=== PATIENT | female | born 1950 | race Caucasian/White ===

== ENCOUNTER 2017-12-06 10:11 | Emergency (ER) | payer OTHER, BC ==
[2017-12-06] MEDS ORDERED: Sodium Chloride 0.9% 2.5 ML Syringe FLUSH PRN (10:18)
[2017-12-06] MEDS ORDERED: Sodium Chloride 0.9% 10 ML Syringe FLUSH PRN (10:18)
[2017-12-06] MEDS ORDERED: Diphtheria,Pertussis(Acell),Tetanus Vaccine 0.5 ML Syringe IM ONE (10:19)
--- NOTE | 2017-12-06 10:26 | EDM.PDOC ---
ED HPI GENERAL MEDICAL PROBLEM - General Chief Complaint: Head Injury Stated Complaint: FELL ON ICE Time Seen by Provider: 12/06/17 10:17 Source of Information: Reports: Patient, EMS History Limitations: Reports: No Limitations - History of Present Illness INITIAL COMMENTS - FREE TEXT/NARRATIVE: HISTORY AND PHYSICAL: Trauma alert was called at [address] Acosta was involved in this case. History of present illness: Patient is a 67-year-old female who presents to the emergency room today with complaints of posterior scalp pain and confusion after a fall. She states she was getting out of her car and when her feet landed on the icy cement she slipped falling on her back, striking the back of her head. She denies any loss of consciousness. EMS was called for assistance. EMS states that upon arrival she was slightly confused to the year and president. EMS gave 0.5 mg Dilaudid and 4mg Zofran PROCESS OPERATOR. Her complaint is posterior scalp pain at the area of hitting the ground. She denies any neck, back, chest, pelvis or extremity pain. She is on a blood thinner, although does not know the name of it. Past medical history of hypertension, poor ejection fraction ("70%"), cervical fusion, and shoulder impingement. Review of systems: As per history of present illness and below otherwise all systems reviewed and negative. Past medical history: As per history of present illness and as reviewed below otherwise noncontributory. Surgical history: As per history of present illness and as reviewed below otherwise noncontributory. Social history: No reported history of drug or alcohol abuse. Family history: As per history of present illness and as reviewed below otherwise noncontributory. Physical exam: General: Well-developed and well-nourished 67-year-old female. Alert and oriented. Nontoxic appearing and in no acute distress. HEENT: Golf-ball sized area of soft tissue swelling to posterior parietal area, tender to palpation. Normocephalic, pupils equal and reactive bilaterally, negative for conjunctival pallor or scleral icterus, mucous membranes moist, throat clear, neck supple, nontender, trachea midline. No drooling or trismus noted. No meningeal signs Lungs: Clear to auscultation, breath sounds equal bilaterally, chest nontender. Heart: S1S2, regular rate and rhythm without overt murmur Abdomen: Soft, nondistended, nontender. Negative for masses or hepatosplenomegaly. Negative for costovertebral tenderness. Pelvis: Stable nontender. Genitourinary: Deferred. Rectal: Deferred. Skin: Intact, warm, dry. No lesions or rashes noted. C-spine/Back: No pinpoint vertebral tenderness upon palpation. No crepitus, step -offs or obvious deformities noted. Patient was not incontinent of urine or stool. Denies any numbness or tingling to her distal extremities. Extremities: Moves all extremities per self without difficulty or deficits. Upper and lower extremities were palpated without any pain or tenderness. Chest , abdomen, pelvis and back are within normal limits and no tenderness/pain with palpation. She is negative for cords or calf pain. Neurovascular unremarkable. Neuro: Awake, alert, oriented. Cranial nerves II through XII unremarkable. Cerebellum unremarkable. Motor and sensory unremarkable throughout. Exam nonfocal. Notes: GCS 15. C-spine was cleared on scene by EMS; she has no cervical tenderness. I will do a CT of her C-Spine due to previous surgery and mechanism of injury. 1110- Chest and Pelvis x-rays are normal. Cervical spine CT is within normal limits, fusion noted at C5-C6 with hardware intact. Head CT shows no fractures or acute bleeding. She does have a subcutaneous hematoma to the posterior parietal area, which was noted on my evaluation. 1115- These findings were shared with the patient. LAB is here doing lab work. Patient offers no current complaints and declines any further pain medication at this time. Discharge is pending. Labs are within normal limits. Will prescribe Tramadol #15, NRF, for pain. Diagnostics: CBC, CMP, PT INR, head CT, cervical spine CT, one view chest, one view pelvis, EKG Therapeutics: Tdap, Saline lock Impression: Head Injury Hematoma Plan: 1. These review the head injury instructions that have been discussed with you and that her printed out in your packet. 2. Rest and ice the painful areas. He may use Tylenol and/or ibuprofen as needed. Tramadol has been prescribed for moderate to severe pain. This medication may cause drowsiness so do not take it while driving or needing to be functioning outside of the house. 3. Follow-up with your primary caregiver in the next 2-3 days. Return to the ED as needed and as discussed. Definitive disposition and diagnosis as appropriate pending reevaluation and review of above. Onset: Today Duration: Minutes: Location: Reports: Head Head Pain Score (Numeric/FACES): 4 - Related Data Allergies Allergy/AdvReac Type Severity Reaction Status Date / Time No Known Allergies Allergy Verified 12/06/17 10:18 Home Meds: Home Meds Atenolol 50 mg PO DAILY 12/06/17 [History] Lisinopril/Hydrochlorothiazide [Lisinopril-Hctz 20-12.5 mg Tab] 1 each PO DAILY 12/06/17 [History] NIFEdipine [Nifedipine ER] 30 mg PO DAILY 12/06/17 [History] Nitroglycerin 0.4 mg SL ASDIRECTED 12/06/17 [History] Pantoprazole [ProTONIX] 40 mg PO DAILY 12/06/17 [History] Potassium Chloride 10 meq PO DAILY 12/06/17 [History] Pravastatin [Pravachol] 40 mg PO DAILY 12/06/17 [History] ED ROS GENERAL - Review of Systems Review Of Systems: ROS reveals no pertinent complaints other than HPI. ED EXAM, HEAD INJURY - Physical Exam Exam: See Below (See dictation) Course - Vital Signs Last Recorded V/S: Last Vital Signs Temp 97.4 F 12/06/17 10:18 Pulse 67 12/06/17 10:18 Resp 18 12/06/17 10:18 BP 160/89 H 12/06/17 10:18 Pulse Ox 97 12/06/17 10:18 - Orders/Labs/Meds Orders: Active Orders 24 hr Category Date Time Status Admission Status [Patient Status] [ADT] Stat ADT 12/06/17 10:45 Active EKG Documentation Completion [RC] STAT Care 12/06/17 10:18 Active Vaccines to be Administered [RC] PER UNIT ROUTINE Care 12/06/17 10:19 Active Sodium Chloride 0.9% [Saline Flush] Med 12/06/17 10:18 Active 10 ml FLUSH ASDIRECTED PRN Sodium Chloride 0.9% [Saline Flush] Med 12/06/17 10:18 Active 2.5 ml FLUSH ASDIRECTED PRN Saline Lock Insert [OM.PC] Stat Oth 12/06/17 10:18 Ordered Medication Orders Sodium Chloride (Saline Flush) 10 ml FLUSH ASDIRECTED PRN PRN Reason: Keep Vein Open Last Admin: 12/06/17 10:45 Dose: 10 ml Sodium Chloride (Saline Flush) 2.5 ml FLUSH ASDIRECTED PRN PRN Reason: Keep Vein Open Last Admin: 12/06/17 10:45 Dose: 2.5 ml Labs: Laboratory Tests 12/06/17 12/06/17 12/06/17 Range/Units 11:19 11:19 11:19 WBC 7.44 (4.0-11.0) K/uL RBC 4.38 (4.30-5.90) M/uL Hgb 13.3 (12.0-16.0) g/dL Hct 40.4 (36.0-46.0) % MCV 92.2 (80.0-98.0) fL MCH 30.4 (27.0-32.0) pg MCHC 32.9 (31.0-37.0) g/dL RDW Std Deviation 45.5 (28.0-62.0) fl RDW Coeff of Harika 14 (11.0-15.0) % Plt Count 258 (150-400) K/uL MPV 10.30 (7.40-12.00) fL Neut % (Auto) 66.1 (48.0-80.0) % Lymph % (Auto) 25.9 (16.0-40.0) % [place] % (Auto) 7.0 (0.0-15.0) % Eos % (Auto) 0.7 (0.0-7.0) % Baso % (Auto) 0.3 (0.0-1.5) % Neut # (Auto) 4.9 (1.4-5.7) K/uL Lymph # (Auto) 1.9 (0.6-2.4) K/uL [place] # (Auto) 0.5 (0.0-0.8) K/uL Eos # (Auto) 0.1 (0.0-0.7) K/uL Baso # (Auto) 0.0 (0.0-0.1) K/uL Nucleated RBC % 0.0 /100WBC Nucleated RBCs # 0 K/uL INR 1.02 Sodium 140 (136-145) mmol/L Potassium 4.2 (3.5-5.1) mmol/L Chloride 103 (98-107) mmol/L Carbon Dioxide 28.4 (21.0-32.0) mmol/L BUN 20 H (7.0-18.0) mg/dL Creatinine 1.1 H (0.6-1.0) mg/dL Est Cr Clr Drug Dosing TNP Estimated GFR (MDRD) 49.7 ml/min Glucose 106 (74-106) mg/dL Calcium 9.1 (8.5-10.1) mg/dL Total Bilirubin 0.3 (0.2-1.0) mg/dL AST 20 (15-37) IU/L ALT 25 (14-63) IU/L Alkaline Phosphatase 67 (46-116) U/L Total Protein 7.3 (6.4-8.2) g/dL Albumin 3.9 (3.4-5.0) g/dL Globulin 3.4 (2.0-3.5) g/dL Albumin/Globulin Ratio 1.1 L (1.3-2.8) Meds: Medications Generic Name Dose Route Start Last Admin Trade Name Freq PRN Reason Stop Dose Admin Sodium Chloride 10 ml 12/06/17 10:18 12/06/17 10:45 Saline Flush FLUSH 10 ml ASDIRECTED PRN Administration Keep Vein Open Sodium Chloride 2.5 ml 12/06/17 10:18 12/06/17 10:45 Saline Flush FLUSH 2.5 ml ASDIRECTED PRN Administration Keep Vein Open Discontinued Medications Generic Name Dose Route Start Last Admin Trade Name Freq PRN Reason Stop Dose Admin Diphtheria/Tetanus/Acell Pertussis 0.5 ml 12/06/17 10:19 12/06/17 10:45 Adacel IM 12/06/17 10:20 0.5 ml .ONCE ONE Administration Departure - Departure Time of Disposition: 11:50 Disposition: Home, Self-Care 01 Clinical Impression: Hematoma Head injury Qualifiers: Encounter type: initial encounter Qualified Code(s): S09.90XA - Unspecified injury of head, initial encounter - Discharge Information Referrals: PCP,Unknown [Primary Care Provider] - Forms: ED Department Discharge Additional Instructions: The following information is given to patients seen in the emergency department who are being discharged to home. This information is to outline your options for follow-up care. We provide all patients seen in our emergency department with a follow-up referral. The need for follow-up, as well as the timing and circumstances, are variable depending upon the specifics of your emergency department visit. If you don't have a primary care physician on staff, we will provide you with a referral. We always advise you to contact your personal physician following an emergency department visit to inform them of the circumstance of the visit and for follow-up with them and/or the need for any referrals to a consulting specialist. The emergency department will also refer you to a specialist when appropriate. This referral assures that you have the opportunity for follow-up care with a specialist. All of these measure are taken in an effort to provide you with optimal care, which includes your follow-up. Under all circumstances we always encourage you to contact your private physician who remains a resource for coordinating your care. When calling for follow-up care, please make the office aware that this follow-up is from your recent emergency room visit. If for any reason you are refused follow-up, please contact the [facility] at and asked to speak to the emergency department charge nurse. [facility] [address] [place] [address] 1. These review the head injury instructions that have been discussed with you and that her printed out in your packet. 2. Rest and ice the painful areas. He may use Tylenol and/or ibuprofen as needed. Tramadol has been prescribed for moderate to severe pain. This medication may cause drowsiness so do not take it while driving or needing to be functioning outside of the house. 3. Follow-up with your primary caregiver in the next 2-3 days. Return to the ED as needed and as discussed. - My Orders Last 24 Hours: My Active Orders 12/06/17 10:18 EKG Documentation Completion [RC] STAT Sodium Chloride 0.9% [Saline Flush] 10 ml FLUSH ASDIRECTED PRN Sodium Chloride 0.9% [Saline Flush] 2.5 ml FLUSH ASDIRECTED PRN Saline Lock Insert [OM.PC] Stat 12/06/17 10:19 Vaccines to be Administered [RC] PER UNIT ROUTINE 12/06/17 10:45 Admission Status [Patient Status] [ADT] Stat - Assessment/Plan Last 24 Hours: My Active Orders 12/06/17 10:18 EKG Documentation Completion [RC] STAT Sodium Chloride 0.9% [Saline Flush] 10 ml FLUSH ASDIRECTED PRN Sodium Chloride 0.9% [Saline Flush] 2.5 ml FLUSH ASDIRECTED PRN Saline Lock Insert [OM.PC] Stat 12/06/17 10:19 Vaccines to be Administered [RC] PER UNIT ROUTINE 12/06/17 10:45 Admission Status [Patient Status] [ADT] Stat
--- NOTE | 2017-12-06 10:52 | CR ---
EXAMINATION: Portable chest radiograph. HISTORY: Fall. FINDINGS: The trachea is midline. The cardiomediastinal silhouette is within normal limits. No pulmonary infilt rates, effusions or pneumothorax. Osseous structures appear unremarkable. IMPRESSION: No acute cardiopulmonary process.
--- NOTE | 2017-12-06 10:57 | CT ---
EXAMINATION: Non contrast CT head. Coronal and sagittal reformats. HISTORY: Fall FINDINGS: No evidence of intra or extra axial hemorrhage, mass, midline shift, hydrocephalus or edema. No hypoattenuation changes in the major vascular territories to suggest acute infarct. No abnormal intracranial calcifications are detected. No evidence of substantial vascular calcificat ions. Paranasal sinuses and mastoid air cells are well aerated without substantial findings. No evidence a nd globes are symmetric. There is complexes are mildly prominent. Pituitary fossa appears unremarkable. Subcutaneous hematoma within the posterior parietal region. Calvarium is intact. No evidence of skull fracture. IMPRESSION: 1. No acute intracranial findings. 2. Nerve sheath complexes are mildly prominent in size.
--- NOTE | 2017-12-06 11:00 | CT ---
EXAMINATION: CT cervical spine HISTORY: Fall COMPARISON: None TECHNIQUE: Axial CT images obtained through the cervical spine without contrast. Coronal and sagittal reconstructions obtained. FINDINGS: The cervical spinal alignment is normal. The vertebral body heights and disc spaces appear well-maintained. Anterior cervical fusion noted at C5-C6. No fracture or acute osseous abnormality de monstrated. Bone mineralization is normal. Mild marginal osteophytes. Lung apices are clear. IMPRESSION: 1. No acute cervical spine abnormality identified.
--- NOTE | 2017-12-06 11:01 | CR ---
EXAMINATION: Pelvis HISTORY: Fall COMPARISON: MRI dated 01/29/2013 TECHNIQUE: AP view FINDINGS: There is no acute osseous abnormality, dislocation, or fracture. Iliopectineal lines are in tact. SI joints are symmetric. Hip joint spaces are preserved. Bone mineralization is normal. IMPRESSION: No acute osseous abnormality identified.
[2017-12-06 12:08] LABS: CHLORIDE,CL 103 mmol/L (98-107); SODIUM,NA 140 mmol/L (136-145)
== END 2017-12-06 12:32 | disposition home or self-care (01) ==
LOC: MW.ED 10:11
DX: S00.03XA Contusion of scalp, initial encounter (principal); S09.90XA Unspecified injury of head, initial encounter; Z79.899 Other long term (current) drug therapy; W00.2XXA Other fall from one level to another due to ice and snow, initial encounter
CPT/HCPCS: 36415; 70450; 70450-26; 71045; 71045-26; 72125; 72125-26; 72170; 72170-26; 80053; 85025; 85610; 90471; 90715; 93005; 99284-25; 99285; G0390

== ENCOUNTER 2017-12-22 15:12 | Observation (INO) | payer MEDICARE, BC ==
[2017-12-22] MEDS ORDERED: Nitroglycerin 0.4 MG Tab.SL SL PRN (15:19)
[2017-12-22] MEDS ORDERED: Aspirin 81 MG Tab.Chew PO ONE (15:19)
--- NOTE | 2017-12-22 15:41 | EDM.PDOC ---
ED HPI GENERAL MEDICAL PROBLEM - General Chief Complaint: Chest Pain Stated Complaint: BACK PAIN Time Seen by Provider: 12/22/17 15:20 Source of Information: Reports: Patient History Limitations: Reports: No Limitations - History of Present Illness INITIAL COMMENTS - FREE TEXT/NARRATIVE: HISTORY AND PHYSICAL: History of present illness: Patient is a 67-year-old female who presents to the emergency room with complaints of a resolved episode of back pain between her shoulder blades. She states she had been doing some light housework and went to sit down to drink a cocktail when she started having intense back pain approximately 5 minutes for this to resolve on its own. During this time she felt flushed and nauseated. Call EMS to transfer her to the emergency room as she does have a history of cardiac disease. Currently asymptomatic and offers no current complaints. EMS gave the patient 325mg aspirin prior to arrival. Patient has a history of very artery disease, she states she is unsure of where her blockage dislocated but it did not require stenting as she was told "the vein is too small to stent". She was routinely seeing a stove tender in [place]. Last seen Dr. Jhaveri a year and half ago. Last week saw Dr. José Antonio López and was started on Crestor 5 mg once daily. Strong family history of heart disease (IA/Stent/Bypass). Personal history of hypertension, hyperlipidemia and coronary artery disease. Review of systems: As per history of present illness and below otherwise all systems reviewed and negative. Past medical history: As per history of present illness and as reviewed below otherwise noncontributory. Surgical history: As per history of present illness and as reviewed below otherwise noncontributory. Social history: No reported history of drug or alcohol abuse. Family history: As per history of present illness and as reviewed below otherwise noncontributory. Physical exam: General: Well-developed and well-nourished 67-year-old female. Alert and oriented. Nontoxic appearing and in no acute distress. HEENT: Atraumatic, normocephalic, pupils equal and reactive bilaterally, negative for conjunctival pallor or scleral icterus, mucous membranes moist, throat clear, neck supple, nontender, trachea midline. No drooling or trismus noted. No meningeal signs Lungs: Clear to auscultation, breath sounds equal bilaterally, chest nontender. Heart: S1S2, regular rate and rhythm without overt murmur Abdomen: Soft, nondistended, nontender. Negative for masses or hepatosplenomegaly. Negative for costovertebral tenderness. Pelvis: Stable nontender. Genitourinary: Deferred. Rectal: Deferred. Skin: Intact, warm, dry. No lesions or rashes noted. Extremities: Atraumatic, negative for cords or calf pain. Neurovascular unremarkable. Neuro: Awake, alert, oriented. Cranial nerves II through XII unremarkable. Cerebellum unremarkable. Motor and sensory unremarkable throughout. Exam nonfocal. Notes: Patient had 325 mg aspirin prior to arrival. Currently is pain-free. We'll continue to monitor. Lab work is unremarkable. EKG rhythm with a heart rate of 89. Patient continues to be pain-free. Due to her past medical history and comorbidities I would like her to stay for observation. She is agreeable. Dr. Do was consulted on this case. Diagnostics: CBC, CMP, troponin, EKG, chest x-ray Therapeutics: Saline lock Impression: Chest Pain r/o IA Plan: Observation admission to MEd/Surg with Telemetry - per Hi Definitive disposition and diagnosis as appropriate pending reevaluation and review of above. Onset: Today Duration: Hour(s): Location: Reports: Back - Related Data Allergies Allergy/AdvReac Type Severity Reaction Status Date / Time No Known Allergies Allergy Verified 12/06/17 10:18 Home Meds: Home Meds Atenolol 50 mg PO DAILY 12/06/17 [History] Lisinopril/Hydrochlorothiazide [Lisinopril-Hctz 20-12.5 mg Tab] 1 each PO DAILY 12/06/17 [History] NIFEdipine [Nifedipine ER] 30 mg PO DAILY 12/06/17 [History] Nitroglycerin 0.4 mg SL ASDIRECTED 12/06/17 [History] Pantoprazole [ProTONIX] 40 mg PO DAILY 12/06/17 [History] Potassium Chloride 10 meq PO DAILY 12/06/17 [History] Pravastatin [Pravachol] 40 mg PO DAILY 12/06/17 [History] Past Medical History Cardiovascular History: Reports: High Cholesterol, Hypertension, Other (See Below) Other Cardiovascular History: pt has heart blockage is knowns about Social & Family History - Tobacco Use Smoking Status *Q: Never Smoker Second Hand Smoke Exposure: No - Caffeine Use Caffeine Use: Reports: Other - Recreational Drug Use Recreational Drug Use: No ED ROS GENERAL - Review of Systems Review Of Systems: ROS reveals no pertinent complaints other than HPI. ED EXAM, GENERAL - Physical Exam Exam: See Below (See dictation) Course - Vital Signs Last Recorded V/S: Last Vital Signs Temp 97.7 F 12/22/17 16:20 Pulse 76 12/22/17 16:20 Resp 16 12/22/17 16:20 BP 136/62 12/22/17 16:20 Pulse Ox 93 L 12/22/17 16:20 - Orders/Labs/Meds Orders: Active Orders 24 hr Category Date Time Status Admission Status [Patient Status] [ADT] Stat ADT 12/22/17 16:20 Ordered EKG Documentation Completion [RC] STAT Care 12/22/17 15:19 Active Chest 1V Frontal [CR] Stat Exams 12/22/17 15:19 Taken Labs: Laboratory Tests 12/22/17 12/22/17 Range/Units 15:23 15:23 WBC 9.11 (4.0-11.0) K/uL RBC 4.33 (4.30-5.90) M/uL Hgb 13.2 (12.0-16.0) g/dL Hct 39.7 (36.0-46.0) % MCV 91.7 (80.0-98.0) fL MCH 30.5 (27.0-32.0) pg MCHC 33.2 (31.0-37.0) g/dL RDW Std Deviation 45.1 (28.0-62.0) fl RDW Coeff of Harika 13 (11.0-15.0) % Plt Count 279 (150-400) K/uL MPV 10.60 (7.40-12.00) fL Neut % (Auto) 57.9 (48.0-80.0) % Lymph % (Auto) 31.5 (16.0-40.0) % [place] % (Auto) 9.9 (0.0-15.0) % Eos % (Auto) 0.5 (0.0-7.0) % Baso % (Auto) 0.2 (0.0-1.5) % Neut # (Auto) 5.3 (1.4-5.7) K/uL Lymph # (Auto) 2.9 H (0.6-2.4) K/uL [place] # (Auto) 0.9 H (0.0-0.8) K/uL Eos # (Auto) 0.1 (0.0-0.7) K/uL Baso # (Auto) 0.0 (0.0-0.1) K/uL Nucleated RBC % 0.0 /100WBC Nucleated RBCs # 0 K/uL Sodium 139 (136-145) mmol/L Potassium 3.3 L (3.5-5.1) mmol/L Chloride 102 (98-107) mmol/L Carbon Dioxide 26.0 (21.0-32.0) mmol/L BUN 23 H (7.0-18.0) mg/dL Creatinine 1.3 H (0.6-1.0) mg/dL Est Cr Clr Drug Dosing 30.58 mL/min Estimated GFR (MDRD) 41.0 ml/min Glucose 143 H (74-106) mg/dL Calcium 9.3 (8.5-10.1) mg/dL Total Bilirubin 0.2 (0.2-1.0) mg/dL AST 13 L (15-37) IU/L ALT 27 (14-63) IU/L Alkaline Phosphatase 72 (46-116) U/L Troponin I < 0.050 (0.000-0.056) ng/mL Total Protein 7.7 (6.4-8.2) g/dL Albumin 4.0 (3.4-5.0) g/dL Globulin 3.7 H (2.0-3.5) g/dL Albumin/Globulin Ratio 1.1 L (1.3-2.8) Meds: Medications Discontinued Medications Generic Name Dose Route Start Last Admin Trade Name Freq PRN Reason Stop Dose Admin Aspirin 324 mg 12/22/17 15:19 Aspirin PO 12/22/17 15:20 ONETIME ONE Nitroglycerin 0.4 mg 12/22/17 15:19 Nitrostat SL Q5M PRN Chest Pain Departure - Departure Time of Disposition: 16:22 Disposition: Refer to Observation Clinical Impression: Chest pain, rule out acute myocardial infarction Referrals: PCP,None [Primary Care Provider] - Forms: ED Department Discharge - My Orders Last 24 Hours: My Active Orders 12/22/17 15:19 EKG Documentation Completion [RC] STAT Chest 1V Frontal [CR] Stat 12/22/17 16:20 Admission Status [Patient Status] [ADT] Stat - Assessment/Plan Last 24 Hours: My Active Orders 12/22/17 15:19 EKG Documentation Completion [RC] STAT Chest 1V Frontal [CR] Stat 12/22/17 16:20 Admission Status [Patient Status] [ADT] Stat
[2017-12-22 16:08] LABS: CHLORIDE,CL 102 mmol/L (98-107); SODIUM,NA 139 mmol/L (136-145)
[2017-12-22] MEDS ORDERED: Sodium Chloride 0.9% 10 ML Syringe FLUSH PRN (19:07)
[2017-12-22] MEDS ORDERED: Acetaminophen 325 MG Tab PO PRN (19:07)
[2017-12-22] MEDS ORDERED: Potassium Chloride 20 MEQ Tab.ER PO ONE (19:07)
[2017-12-22] MEDS ORDERED: Sodium Chloride 0.9% 2.5 ML Syringe FLUSH PRN (19:07)
[2017-12-22] MEDS: Hydrochlorothiazide 12.5 MG Cap PO SCH (20:04)
[2017-12-22] MEDS: Pantoprazole 40 MG Tab.CR PO SCH (20:04)
[2017-12-22] MEDS: NIFEdipine 30 MG Tab.ER PO SCH (20:05)
[2017-12-22] MEDS: Lisinopril 10 MG Tab PO SCH (20:05)
[2017-12-22] MEDS: Atenolol 50 MG Tab PO SCH (20:06)
--- NOTE | 2017-12-22 21:21 | PCM.HP ---
H&P History of Present Illness - General Admit Problem/Dx: Admission Diagnosis/Problem Admission Diagnosis/Problem Chest pain, rule out acute myocardial infarction - History of Present Illness Initial Comments - Free Text/Narative: 67 yo female with pmh of CAD who presents with five minutes of pain in the back that radiated to the left shoulder. She was flushed, and felt diaphoretic during this episode. She denies any shortness of breath, palpitaitons, or fevers. - Related Data Allergies/Adverse Reactions: Allergies Allergy/AdvReac Type Severity Reaction Status Date / Time No Known Allergies Allergy Verified 12/06/17 10:18 Home Medications: Home Meds Atenolol 50 mg PO DAILY 12/06/17 [History] Lisinopril/Hydrochlorothiazide [Lisinopril-Hctz 20-12.5 mg Tab] 1 each PO DAILY 12/06/17 [History] NIFEdipine [Nifedipine ER] 30 mg PO DAILY 12/06/17 [History] Nitroglycerin 0.4 mg SL ASDIRECTED 12/06/17 [History] Pantoprazole [ProTONIX] 40 mg PO DAILY 12/06/17 [History] Potassium Chloride 10 meq PO DAILY 12/06/17 [History] Rosuvastatin [Crestor] 5 mg PO DAILY 12/22/17 [History] Past Medical History Cardiovascular History: Reports: High Cholesterol, Hypertension, Other (See Below) Other Cardiovascular History: pt has heart blockage is knowns about (70%) dx ` 10 years ago Social & Family History - Family History Family Medical History: Noncontributory - Tobacco Use Smoking Status *Q: Never Smoker Second Hand Smoke Exposure: No - Caffeine Use Caffeine Use: Reports: Coffee - Alcohol Use Days Per Week of Alcohol Use: 2 Number of Drinks Per Day: 1 Total Drinks Per Week: 2 - Recreational Drug Use Recreational Drug Use: No H&P Review of Systems - Review of Systems: Review Of Systems: ROS reveals no pertinent complaints other than HPI. Exam - Exam Exam: See Below - Vital Signs Vital Signs: Last Vital Signs Temp 37.0 C 12/22/17 18:15 Pulse 73 12/22/17 20:06 Resp 14 12/22/17 18:15 BP 146/84 H 12/22/17 20:06 Pulse Ox 93 L 12/22/17 18:15 Weight: 75.5 kg - Exam General: Alert, Oriented HEENT: Mucosa Moist & [place] Neck: Supple Lungs: Clear to Auscultation, Normal Respiratory Effort Cardiovascular: Regular Rate, Regular Rhythm GI/Abdominal Exam: Normal Bowel Sounds, Soft, Non-Tender Skin: Warm, Dry, Intact - Patient Data Lab Results Last 24 hrs: Laboratory Results - last 24 hr 12/22/17 12/22/17 Range/Units 15:23 15:23 WBC 9.11 (4.0-11.0) K/uL RBC 4.33 (4.30-5.90) M/uL Hgb 13.2 (12.0-16.0) g/dL Hct 39.7 (36.0-46.0) % MCV 91.7 (80.0-98.0) fL MCH 30.5 (27.0-32.0) pg MCHC 33.2 (31.0-37.0) g/dL RDW Std Deviation 45.1 (28.0-62.0) fl RDW Coeff of Harika 13 (11.0-15.0) % Plt Count 279 (150-400) K/uL MPV 10.60 (7.40-12.00) fL Neut % (Auto) 57.9 (48.0-80.0) % Lymph % (Auto) 31.5 (16.0-40.0) % Coles % (Auto) 9.9 (0.0-15.0) % Eos % (Auto) 0.5 (0.0-7.0) % Baso % (Auto) 0.2 (0.0-1.5) % Neut # (Auto) 5.3 (1.4-5.7) K/uL Lymph # (Auto) 2.9 H (0.6-2.4) K/uL Coles # (Auto) 0.9 H (0.0-0.8) K/uL Eos # (Auto) 0.1 (0.0-0.7) K/uL Baso # (Auto) 0.0 (0.0-0.1) K/uL Nucleated RBC % 0.0 /100WBC Nucleated RBCs # 0 K/uL Sodium 139 (136-145) mmol/L Potassium 3.3 L (3.5-5.1) mmol/L Chloride 102 (98-107) mmol/L Carbon Dioxide 26.0 (21.0-32.0) mmol/L BUN 23 H (7.0-18.0) mg/dL Creatinine 1.3 H (0.6-1.0) mg/dL Est Cr Clr Drug Dosing 30.58 mL/min Estimated GFR (MDRD) 41.0 ml/min Glucose 143 H (74-106) mg/dL Calcium 9.3 (8.5-10.1) mg/dL Total Bilirubin 0.2 (0.2-1.0) mg/dL AST 13 L (15-37) IU/L ALT 27 (14-63) IU/L Alkaline Phosphatase 72 (46-116) U/L Troponin I < 0.050 (0.000-0.056) ng/mL Total Protein 7.7 (6.4-8.2) g/dL Albumin 4.0 (3.4-5.0) g/dL Globulin 3.7 H (2.0-3.5) g/dL Albumin/Globulin Ratio 1.1 L (1.3-2.8) Result Diagrams: 12/22/17 15:23 12/22/17 15:23 Problem List Initiated/Reviewed/Updated: Yes Orders Last 24hrs: Active Orders 24 hr Category Date Time Status Admission Status [Patient Status] [ADT] Stat ADT 12/22/17 16:20 Active EKG Documentation Completion [RC] STAT Care 12/22/17 15:19 Active Oxygen Therapy [RC] PRN Care 12/22/17 21:18 Ordered Telemetry Monitoring [Cardiac Monitoring] [RC] . Care 12/22/17 19:03 Active DIRECTED VTE/DVT Education [RC] PER UNIT ROUTINE Care 12/22/17 21:18 Ordered Vital Signs [RC] Q4H Care 12/22/17 21:18 Ordered Chest 1V Frontal [CR] Stat Exams 12/22/17 15:19 Taken TROPONIN I [CHEM] Q6H Lab 12/22/17 21:23 Ordered TROPONIN I [CHEM] Q6H Lab 12/23/17 03:23 Ordered Acetaminophen [Tylenol] Med 12/22/17 19:07 Active 650 mg PO Q4H PRN Atenolol [Tenormin] Med 12/22/17 19:30 Active 50 mg PO DAILY Hydrochlorothiazide Med 12/22/17 19:30 Active 12.5 mg PO DAILY Lisinopril [Prinivil] Med 12/22/17 19:30 Active 20 mg PO DAILY NIFEdipine [Procardia XL] Med 12/22/17 19:30 Active 30 mg PO DAILY Pantoprazole [ProTONIX] Med 12/22/17 19:30 Active 40 mg PO DAILY Potassium Chloride [Klor-Con 10] Med 12/23/17 09:00 Active 10 meq PO DAILY Rosuvastatin [Crestor] Med 12/23/17 09:00 Active 5 mg PO DAILY Sodium Chloride 0.9% [Saline Flush] Med 12/22/17 19:07 Active 10 ml FLUSH ASDIRECTED PRN Sodium Chloride 0.9% [Saline Flush] Med 12/22/17 19:07 Active 2.5 ml FLUSH ASDIRECTED PRN Convert IV to Saline Lock [OM.PC] Routine Oth 12/22/17 19:07 Ordered Sequential Compression Device [OM.PC] Per Unit Routine Oth 12/22/17 21:18 Ordered Resuscitation Status Routine Resus Stat 12/22/17 21:18 Ordered Medication Orders Acetaminophen (Tylenol) 650 mg PO Q4H PRN PRN Reason: Pain Atenolol (Tenormin) 50 mg PO DAILY [facility] Last Admin: 12/22/17 20:06 Dose: 50 mg Hydrochlorothiazide (Hydrochlorothiazide) 12.5 mg PO DAILY [facility] Last Admin: 12/22/17 20:04 Dose: 12.5 mg Lisinopril (Prinivil) 20 mg PO DAILY [facility] Last Admin: 12/22/17 20:05 Dose: 20 mg Nifedipine (Procardia Xl) 30 mg PO DAILY [facility] Last Admin: 12/22/17 20:05 Dose: 30 mg Pantoprazole Sodium (Protonix) 40 mg PO DAILY [facility] Last Admin: 12/22/17 20:04 Dose: 40 mg Potassium Chloride (Klor-Con 10) 10 meq PO DAILY [facility] Rosuvastatin Calcium (Crestor) 5 mg PO DAILY [facility] Sodium Chloride (Saline Flush) 10 ml FLUSH ASDIRECTED PRN PRN Reason: Keep Vein Open Sodium Chloride (Saline Flush) 2.5 ml FLUSH ASDIRECTED PRN PRN Reason: Keep Vein Open Assessment/Plan Comment:: 67 yo female admitted for chest pain. She was monitored overnight on telemetry with no events and no return of her symptoms. She ruled out for acute coronary syndrome. Patient was discharged home to have follow up with Dr. López.
[2017-12-23] MEDS: Lisinopril 10 MG Tab PO SCH (08:40)
[2017-12-23] MEDS: Pantoprazole 40 MG Tab.CR PO SCH (08:40)
[2017-12-23] MEDS: NIFEdipine 30 MG Tab.ER PO SCH (08:40)
[2017-12-23] MEDS: Hydrochlorothiazide 12.5 MG Cap PO SCH (08:41)
[2017-12-23] MEDS: Atenolol 50 MG Tab PO SCH (08:43)
[2017-12-23] MEDS ORDERED: Rosuvastatin 10 MG Tab PO SCH (09:00)
[2017-12-23] MEDS ORDERED: Potassium Chloride 10 MEQ Tab.ER PO SCH (09:00)
--- NOTE | 2017-12-23 13:41 | CR ---
EXAM DATE: 12/22/17 PATIENT'S AGE: 67 Patient: RADHA GRANADOS Facility: [place], [place] Site . Site : [id number] Study: XRay Chest [id number]/15/2018 3:44:44 PM Ordering Physician: Doctor Perez Final Report: INDICATION: Chest pain TECHNIQUE: Single view chest. FINDINGS: The lungs are clear. The heart, mediastinum and pulmonary vessels are of normal size. There is no evidence of pleural disease. IMPRESSION: Negative chest. Dictated by Nilam Oshea MD @ Dec 22 2017 3:55PM (Electronic Signature) Report Signed by Proxy. ABBI
== END 2017-12-23 11:20 | disposition home or self-care (01) ==
LOC: MW.ED 15:12 → MW.MS 16:20
PROVIDERS: ADMIT Internal Medicine; ATTEND Internal Medicine
DX: R07.9 Chest pain, unspecified (principal); I10 Essential (primary) hypertension; E78.00 Pure hypercholesterolemia, unspecified; I25.10 Atherosclerotic heart disease of native coronary artery without angina pectoris; Z79.899 Other long term (current) drug therapy
CPT/HCPCS: 36415; 71045; 80053; 84484; 85025; 93005; 99285; A9270; G0378

== ENCOUNTER 2018-03-14 09:06 | Day surgery (SDC) | payer BC ==
[~2018-03-14 09:06] MED LIST: Lactated Ringers 1,000 ML IV SCH; Lidocaine 2% 5 ML SDV ONE; Midazolam 1 MG/ML 2 ML SDV ONE; Propofol 200 MG/20 ML SDV ONE; fentaNYL 100 MCG/2 ML SDV ONE
--- NOTE | 2018-03-14 09:59 | PCM.PREANE ---
Preanesthetic Assessment - Anesthesia/Transfusion/Family Hx Anesthesia History: Prior Anesthesia Reaction Other Type of Anesthesia Reaction Comment: only after neck surgery Family History of Anesthesia Reaction: No Transfusion History: No Prior Transfusion(s) Intubation History: Unknown - Review of Systems General: No Symptoms Pulmonary: No Symptoms Cardiovascular: No Symptoms Gastrointestinal: Other (dyspepsia, last EGD and colonoscopy 10 years ago) Neurological: No Symptoms Other: Reports: None - Physical Assessment Height: 1.52 m Weight: 72.121 kg ASA Class: 3 Mental Status: Alert & Oriented x3 Airway Class: Mallampati = 2 Dentition: Reports: Normal Dentition Thyro-Mental Finger Breadths: 3 Mouth Opening Finger Breadths: 2 (small mouth) ROM/Head Extension: Limited/Partial Lungs: Clear to Auscultation, Normal Respiratory Effort Cardiovascular: Regular Rate, Regular Rhythm - Allergies Allergies/Adverse Reactions: Allergies Allergy/AdvReac Type Severity Reaction Status Date / Time No Known Allergies Allergy Verified 03/11/18 14:16 - Blood Blood Available: No - Anesthesia Plan Pre-Op Medication Ordered: None - Acknowledgements Anesthesia Type Planned: MAC Pt an Appropriate Candidate for the Planned Anesthesia: Yes Alternatives and Risks of Anesthesia Discussed w Pt/Guardian: Yes Pt/Guardian Understands and Agrees with Anesthesia Plan: Yes PreAnesthesia Questionnaire HEENT History: Reports: Cataract Cardiovascular History: Reports: CAD, High Cholesterol, Hypertension, Other ( See Below) Other Cardiovascular History: states has 70% blockage in an artery in her heart (unknown which one) Gastrointestinal History: Reports: GERD Musculoskeletal History: Reports: Back Pain, Chronic, Other (See Below) ( myofascial pain syndrome) Neurological History: Reports: Concussion, Other (See Below) Other Neuro History: hx of motion sickness- not recently Endocrine/Metabolic History: Reports: Obesity/BMI 30+ - Past Surgical History HEENT Surgical History: Reports: Cataract Surgery, Other (See Below) Other HEENT Surgeries/Procedures: bilateral Stapendectomy GI Surgical History: Reports: Appendectomy, Other (See Below) Other GI Surgeries/Procedures: Explaratory laparotomy Female Surgical History: Reports: Hysterectomy Neurological Surgical History: Reports: C-Spine, Spinal Fusion Other Neurological Surgeries/Procedures: has plate and screws in neck Musculoskeletal Surgical History: Reports: Other (See Below) Other Musculoskeletal Surgeries/Procedures:: right bunionectomy (has screw) - SUBSTANCE USE Smoking Status *Q: Never Smoker Recreational Drug Use History: No - HOME MEDS Home Medications: Home Meds Lisinopril/Hydrochlorothiazide [Lisinopril-Hctz 20-12.5 mg Tab] 1 each PO DAILY 12/06/17 [History] NIFEdipine [Nifedipine ER] 30 mg PO DAILY 12/06/17 [History] Nitroglycerin 0.4 mg SL ASDIRECTED 12/06/17 [History] Pantoprazole [ProTONIX] 40 mg PO DAILY 12/06/17 [History] Potassium Chloride 10 meq PO DAILY 12/06/17 [History] Rosuvastatin [Crestor] 5 mg PO DAILY 12/22/17 [History] - CURRENT (IN HOUSE) MEDS Current Meds: Current Medications Lactated Ringer's (Ringers, Lactated) 1,000 mls @ 125 mls/hr IV ASDIRECTED CHAYO Discontinued Medications Fentanyl (Sublimaze) Confirm Administered Dose 100 mcg .ROUTE .STK-MED ONE Stop: 03/14/18 07:10 Lidocaine (Xylocaine-Mpf 2%) Confirm Administered Dose 5 ml .ROUTE .STK-MED ONE Stop: 03/14/18 07:10 Midazolam HCl (Versed 1 Mg/Ml) Confirm Administered Dose 2 mg .ROUTE .STK-MED ONE Stop: 03/14/18 07:10 Propofol (Diprivan 20 Ml) Confirm Administered Dose 400 mg .ROUTE .STK-MED ONE Stop: 03/14/18 07:10
[2018-03-14] MEDS ORDERED: ePHEDrine 50 MG/ML SDV ONE (10:37)
--- NOTE | 2018-03-14 10:55 | PCM.OPNOTE ---
- General Post-Op/Procedure Note Date of Surgery/Procedure: 03/14/18 Operative Procedure(s): egd w bx. colonsocopy w bx Findings: see dict [id number] Pre Op Diagnosis: dysphagia and abd pain Post-Op Diagnosis: Same Anesthesia Technique: Moderate Sedation Primary Surgeon: Brad Zhao Pathology: egd bx and r colitis bx Complications: None Condition: Good
--- NOTE | 2018-03-14 11:35 | PCM48HPAN ---
Post Anesthesia Note - EVALUATION WITHIN 48HRS OF ANESTHETIC Vital Signs in Normal Range: Yes Patient Participated in Evaluation: Yes Respiratory Function Stable: Yes Airway Patent: Yes Cardiovascular Function Stable: Yes Hydration Status Stable: Yes Pain Control Satisfactory: Yes Nausea and Vomiting Control Satisfactory: Yes Mental Status Recovered: Yes Resp Rate: 12 - COMMENTS/OBSERVATIONS Free Text/Narrative:: no anesthesia problems
--- NOTE | 2018-03-14 13:11 | OR ---
SURGEON: Brad Zhao MD DATE OF PROCEDURE: 03/14/2018 PREOPERATIVE DIAGNOSES: 1. Dysphagia. 2. Abdominal pain. POSTOPERATIVE DIAGNOSES: 1. EGD diagnosis is Schatzki ring and acid reflux. 2. Colonoscopy diagnosis is colitis. PROCEDURES PERFORMED: EGD with biopsy and colonoscopy with biopsy. PROCEDURE IN DETAIL: EGD: The patient was taken to the endoscopy room, and with the [employer], Diprivan was administered. A well-lubricated EGD scope was gently inserted through the oropharynx, down the esophagus, passing through the gastroesophageal junction, into the stomach. The mucosa was examined upon the passage. Any etiology will be noted. Once in the stomach, we continued to advance to the distal antrum, passed through the pylorus into the second portion of the duodenum. Again, the mucosa was examined for any abnormality and etiology. The scope was then retrieved back to the stomach and then retroflexed to look at the fundus of the stomach. If a biopsy was indicated, we will biopsy the antrum, body, and gastroesophageal junction. The air will be sucked out while the scope is retrieved to reduce the patient's discomfort. The patient tolerated the procedure well. There were no intraoperative complications. Dr. Zhao was present through the whole procedure. Prior to surgery, a time-out had been called, the patient identified, procedure identified and antibiotic administered. The patient was taken to the endoscopy room. A time out was called, patient identified, and procedure identified. Diprivan was then administrated. Patient went from awake to sleep, hearing doctor talking or door closing is normal. Perineum inspection and digital examination were then performed. A well- lubricated colonoscope was gently inserted through the rectum, advanced past the rectosigmoid junction, the descending colon, splenic flexure, transverse colon, hepatic flexure, ascending colon, arrived to the cecum. Cecum was identified as dictated in the finding. Then the scope was carefully withdrawn while attention was paid to the mucosal surface for any abnormality. Air will be sucked out during the scope withdrawal. At the rectum, retroflexed to examine any rectal diseases, fistula or hemorrhoids. During mucosal examination, biopsy performed. Patient tolerated procedure well. There were no intraoperative complications, and Dr. Zhao was present throughout the whole procedure. EGD FINDINGS: 1. The patient is easily sedated with [employer] and Diprivan. The patient is soundly snoring. 2. Proximal esophagus and oropharynx grossly normal in appearance and distal esophagus at distance 35 shows a ring consistent with Schatzki ring and inflamed too with salmon color change. Stomach rugae is normal in appearance and antrum is a little bit inflamed and duodenum was grossly normal in appearance. On retroflex look at the fundus of the stomach, the patient has a mild hiatal hernia consistent with Schatzki ring. Biopsy done at antrum, GE junction at 35 and greater curvature. The greater curvature very close to the antrum area or between the greater curvature and antrum area, there is an area that looked a little bit elevated and rough, that area was biopsied. Sucked out the gas while scope pulling out. COLONOSCOPY FINDINGS: 1. The patient is easily sedated with [employer] and Diprivan. The patient is sound snoring. 2. Bowel prep is average. Moderate amount of liquid stool, no semi-formed stool. 3. Colon is rather straight forward. Cecum indicated by ileocecal fold, one- to-one indentation, light emittance, appendiceal orifice. Mucosa examined upon scope pulling out with some irrigation. The patient has moderate colitis, inflammation at the right colon, right distal to the cecum. Cecum is fine, but 1 ring to 3 rings above the cecum shows inflammation. It was randomly biopsied. It was well located in the right colon and otherwise the patient does not have diverticulosis, polyp, mass, growth, stricture, AV malformation, bleeding, ulceration, none of those. The patient has mild internal hemorrhoids. No external hemorrhoids. The patient would benefit from repeat colonoscopy 10 years from today or if biopsy turns out different or clinically indicated otherwise. NADEGE / ALEXA /[id number] ABBI
== END 2018-03-14 11:45 | disposition home or self-care (01) ==
LOC: MW.SDS 09:06
PROVIDERS: ATTEND Surgery
DX: K22.2 Esophageal obstruction (principal); K44.9 Diaphragmatic hernia without obstruction or gangrene; K52.9 Noninfective gastroenteritis and colitis, unspecified; K21.9 Gastro-esophageal reflux disease without esophagitis; K64.8 Other hemorrhoids; I10 Essential (primary) hypertension; E66.9 Obesity, unspecified; Z68.31 Body mass index [BMI] 31.0-31.9, adult; E78.00 Pure hypercholesterolemia, unspecified
CPT/HCPCS: 43239; 45380; J2250; J3010; J7120; 88305; 88312; J2704